=== PATIENT | male | born 1955 | race Caucasian/White ===

== ENCOUNTER 2023-09-25 00:40 | Emergency (ER) | payer MEDICARE ==
[2023-09-25 01:41] LABS: BASOPHILS ABSOLUTE AUTO 0.06 K/uL (0.00-0.10); BASOPHILS PERCENT AUTO 0.8 % (0.1-1.3); EOSINOPHILS ABSOLUTE AUTO 0.29 K/uL (0.00-0.40); HEMATOCRIT 41.5 % (38.4-49.7); IMMATURE GRAN PERCENT AUTO 0.3 % (0.0-0.7); LYMPHOCYTES ABSOLUTE AUTO 0.75 K/uL (0.8-3.3); LYMPHOCYTES PERCENT AUTO 10.4 % (11.4-47.7); MEAN CORPUSCULAR HEMOGLOBIN 30.4 pg (31.6-35.5); MEAN CORPUSCULAR HGB CONC 33.7 g/dL (31.6-35.5); MONOCYTES ABSOLUTE AUTO 0.61 K/uL (0.20-0.90); MONOCYTES PERCENT AUTO 8.5 % (3.3-12.6); NEUTROPHILS ABSOLUTE AUTO 5.47 K/uL (1.0-7.6); PLATELET COUNT,PLT 177 K/uL (130-375); RED BLOOD CELL COUNT 4.61 M/uL (4.14-5.76); WHITE BLOOD CELL COUNT,WBC 7.2 K/uL (3.2-11.0)
[2023-09-25 01:47] LABS: APPEARANCE,URINE TURBID (CLEAR); BILIRUBIN,URINE LARGE (NEGATIVE); COLOR,URINE RED (YELLOW); GLUCOSE,URINE 100 mg/dL (NEGATIVE); KETONES,URINE 40 mg/dL (NEGATIVE); LEUKOCYTE ESTERASE,URINE LARGE (NEGATIVE); NITRITE,URINE NEGATIVE (NEGATIVE); OCCULT BLOOD,URINE LARGE (NEGATIVE); PH,URINE 8.5 (5.0-8.0); PROTEIN,URINE >=300 mg/dL (NEGATIVE)
[2023-09-25] MEDS: LORazepam 1 MG Tab PO ONE (01:50)
[2023-09-25] MEDS: Lidocaine 2% Viscous Solution 15 ML UD TOP ONE (01:52)
[2023-09-25 01:57] LABS: IMMATURE GRAN ABSOLUTE AUTO 0.02 K/uL (0.00-0.23)
[2023-09-25 01:59] LABS: RBC,URINE PACKED (0-5)
[2023-09-25 02:04] LABS: A/G RATIO 0.9 (1.2-2.2); ALANINE AMINOTRANSFERASE,ALT 19 U/L (12-78); ALBUMIN 3.3 g/dL (3.4-5.0); ALKALINE PHOSPHATASE 70 U/L (46-116); ASPARTATE AMNIOTRANSFERASE,AST 15 U/L (15-37); BILIRUBIN TOTAL 0.3 mg/dL (0.2-1.0); BLOOD UREA NITROGEN,BUN 22 mg/dL (7-18); CALCIUM 8.1 mg/dL (8.5-10.1); CARBON DIOXIDE,CO2 24 mmol/L (21-32); CHLORIDE,CL 105 mmol/L (100-108); CREATININE 1.7 mg/dL (0.8-1.3); EST CRCL DRUG DOSING (CG) 40.43 mL/min; ESTIMATED GFR 43 mL/min (>60); GLUCOSE RANDOM 102 mg/dL (74-106); POTASSIUM,K 4.6 mmol/L (3.6-5.2); PROTEIN TOTAL,TP 6.9 g/dL (6.4-8.2); SODIUM,NA 139 mmol/L (140-148)
[2023-09-25 02:07] LABS: ANION GAP 14.6 mmol/L (5.0-14.0); C-REACTIVE PROTEIN < 0.50 mg/dL (<0.50)
[2023-09-25 03:09] VITALS: BP 163/91; PULSE 69
== END 2023-09-25 03:05 | disposition home or self-care (01) ==
LOC: JP.ED 00:40
DX: R31.0 Gross hematuria (principal); I10 Essential (primary) hypertension; I25.2 Old myocardial infarction; Z88.0 Allergy status to penicillin; Z91.040 Latex allergy status; Z79.899 Other long term (current) drug therapy; Z87.891 Personal history of nicotine dependence
CPT/HCPCS: 36415; 80053; 81001; 83605; 85025; 86140; 99284; A9270-GY

== ENCOUNTER 2023-09-25 08:10 | Emergency (ER) | payer MEDICARE ==
[2023-09-25 08:44] VITALS: BP 155/92; PULSE 70
[2023-09-25] MEDS: Lidocaine 2% Jelly 10 ML Urojet MUCMEM ONE (09:59)
[2023-09-25] MEDS ORDERED: Naloxone 0.4 MG/ML SDV IVPUSH PRN (10:56)
[2023-09-25] MEDS ORDERED: fentaNYL 50 MCG/ML SDV IVPUSH ONE (10:56)
[2023-09-25] MEDS: fentaNYL 50 MCG/ML SDV IM ONE (11:05)
[2023-09-25] MEDS: Oxybutynin 5 MG Tab PO ONE (11:09)
== END 2023-09-25 12:50 | disposition home or self-care (01) ==
LOC: JP.ED 08:10
DX: C67.9 Malignant neoplasm of bladder, unspecified (principal); R33.9 Retention of urine, unspecified; I25.2 Old myocardial infarction; Z95.5 Presence of coronary angioplasty implant and graft; Z79.82 Long term (current) use of aspirin; Z79.899 Other long term (current) drug therapy; Z88.0 Allergy status to penicillin; Z91.040 Latex allergy status
CPT/HCPCS: 51702; 96372; 99283; A9270; J3010

== ENCOUNTER 2025-07-27 11:32 | Emergency (ER) | payer MEDICARE ==
[2025-07-27 11:56] LABS: BASOPHILS ABSOLUTE AUTO 0.06 K/uL (0.00-0.10); BASOPHILS PERCENT AUTO 0.8 % (0.1-1.3); EOSINOPHILS ABSOLUTE AUTO 0.38 K/uL (0.00-0.40); EOSINOPHILS PERCENT AUTO 5.0 % (0.0-5.4); IMMATURE GRAN PERCENT AUTO 0.3 % (0.0-0.7); LYMPHOCYTES ABSOLUTE AUTO 1.43 K/uL (0.8-3.3); LYMPHOCYTES PERCENT AUTO 18.9 % (11.4-47.7); MONOCYTES ABSOLUTE AUTO 0.81 K/uL (0.20-0.90); MONOCYTES PERCENT AUTO 10.7 % (3.3-12.6); NEUTROPHILS ABSOLUTE AUTO 4.87 K/uL (1.0-7.6); NEUTROPHILS PERCENT AUTO 64.3 % (40.0-78.1); PLATELET COUNT,PLT 183 K/uL (130-375); RED BLOOD CELL COUNT 4.77 M/uL (4.14-5.76); WHITE BLOOD CELL COUNT,WBC 7.6 K/uL (3.2-11.0)
[2025-07-27 12:00] LABS: IMMATURE GRAN ABSOLUTE AUTO 0.02 K/uL (0.00-0.23)
[2025-07-27 12:11] LABS: INR 1.0
[2025-07-27] MEDS: Metoprolol Tartrate 5 MG/5 ML SDV IVPUSH ONE (12:11)
[2025-07-27 12:26] LABS: A/G RATIO 0.9 (1.2-2.2); ALANINE AMINOTRANSFERASE,ALT 29 U/L (12-78); ASPARTATE AMNIOTRANSFERASE,AST 16 U/L (15-37); BILIRUBIN TOTAL 0.5 mg/dL (0.2-1.0); BLOOD UREA NITROGEN,BUN 32 mg/dL (7-18); CARBON DIOXIDE,CO2 28 mmol/L (21-32); CHLORIDE,CL 108 mmol/L (100-108); CREATININE 1.8 mg/dL (0.8-1.3); EST CRCL DRUG DOSING (CG) 38.30 mL/min; ESTIMATED GFR 40 mL/min (>60); GLUCOSE RANDOM 126 mg/dL (74-106); POTASSIUM,K 4.4 mmol/L (3.6-5.2); PROTEIN TOTAL,TP 7.4 g/dL (6.4-8.2); SODIUM,NA 142 mmol/L (140-148); TROPONIN I HIGH SENSITIVITY 10.0 pg/mL (<=60.3)
[2025-07-27] MEDS ORDERED: Naloxone 0.4 MG/ML SDV IVPUSH PRN (13:03)
[2025-07-27] MEDS: Iopamidol 755 Mg/ML 100 ML Bottle IV ONE (13:32)
[2025-07-27 13:49] LABS: APPEARANCE,URINE CLEAR (CLEAR); GLUCOSE,URINE NEGATIVE (NEGATIVE); OCCULT BLOOD,URINE NEGATIVE (NEGATIVE)
[2025-07-27 14:02] LABS: SQUAMOUS EPITHELIAL CELLS,UR NOT SEEN /HPF
[2025-07-27] MEDS: Ondansetron 4 MG/2 ML SDV IVPUSH ONE (14:06)
[2025-07-27] MEDS: Diltiazem 25 MG/5 ML SDV IVPUSH ONE ×2 (14:21→16:27)
[2025-07-27] MEDS: Diltiazem 100 MG in Sodium Chloride 0.9% 100 ML IV SCH (14:30)
[2025-07-27] MEDS: Heparin Sodium 5,000 Units/ML Vial IVPUSH ONE (15:53)
[2025-07-27 17:16] VITALS: BP 146/63; PULSE 37
== END 2025-07-27 19:45 ==
LOC: JP.ED 11:32
DX: I21.4 Non-ST elevation (NSTEMI) myocardial infarction (principal); I48.91 Unspecified atrial fibrillation; E86.0 Dehydration; I10 Essential (primary) hypertension; I25.2 Old myocardial infarction; Z88.0 Allergy status to penicillin; Z91.040 Latex allergy status; Z79.82 Long term (current) use of aspirin; Z79.899 Other long term (current) drug therapy
CPT/HCPCS: 36415; 71275; 80053; 81001; 83605; 83735; 83880; 84443; 84484; 85025; 85049; 85610; 85730; 87428; 93005; 93010; 96361; 96365; 96366; 96374; 96375; 99285; J0616; J1163; J1644; J2405; J3490; J7040; Q9967; J1171